=== PATIENT | female | born 1975 | race African-American/Black ===

== ENCOUNTER 2019-06-05 08:50 | Emergency (ER) | payer MEDICAID ==
[~2019-06-05] VITALS: Ht 167.6 cm; Wt 66.0 kg
[2019-06-05] MEDS ORDERED: KETOROLAC 30MG/ML VIAL IM ONE (09:30)
[2019-06-05 09:52] LABS: CLARITY URINE CLEAR (CLEAR); COLOR URINE YELLOW (YELLOW); KETONES URINE TRACE (NEGATIVE); LEUKOCYTE ESTERASE URINE TRACE (NEGATIVE); NITRITE URINE NEGATIVE (NEGATIVE); OCCULT BLOOD URINE NEGATIVE (NEGATIVE); PH URINE 5.5 (4.5-8.0); PROTEIN URINE NEGATIVE (NEGATIVE); SPECIFIC GRAVITY URINE 1.024 (1.005-1.030)
[2019-06-05 10:50] VITALS: BP 152/78
== END 2019-06-05 10:54 | disposition home or self-care (01) ==
LOC: ER 08:50
DX: M54.5 Low back pain (principal)
CPT/HCPCS: 72100; 81003; 81025; 96372; 99284; J1885

== ENCOUNTER 2025-01-26 20:34 | Emergency (ER) | payer MEDICAID ==
[~2025-01-26] VITALS: Ht 167.6 cm; Wt 63.4 kg
[2025-01-26 20:46] VITALS: O2SAT 99
[2025-01-26] MEDS: DEXAMETHASONE 10 MG/ML VIAL PO ONE (21:40)
[2025-01-26] MEDS: KETOROLAC 15MG/ML VIAL IM ONE (21:41)
[2025-01-26] MEDS: LIDOCAINE 5% PATCH TOP SCH (21:42)
[2025-01-26] MEDS ORDERED: LIDO-53 TP (22:49)
[2025-01-26] MEDS ORDERED: CYCL5TAB3 MT (22:49)
[2025-01-26] MEDS ORDERED: NAPR-1176 MT (22:49)
[2025-01-26 23:13] VITALS: BP 155/93; PULSE 74; RESP 15; TEMP 36.5; O2SAT 100
== END 2025-01-26 23:12 | disposition home or self-care (01) ==
LOC: ER 20:42
DX: G89.29 Other chronic pain (principal); M54.50 Low back pain, unspecified; J45.909 Unspecified asthma, uncomplicated; Z79.52 Long term (current) use of systemic steroids; Z79.1 Long term (current) use of non-steroidal anti-inflammatories (NSAID); Z79.899 Other long term (current) drug therapy
CPT/HCPCS: 81025; 96372; 99283; J1100; J1885; Z7610